=== PATIENT | female | born 1975 | race Two or more races ===

== ENCOUNTER → 2024-05-19 | Outpatient (CLI) | payer MEDICAID, SELFPAY ==
--- NOTE | 2024-05-19 13:45 | XR_ITS ---
Examination: Breast ultrasound complete, bilateral Date and time of exam: May 19, 2024 1406 hours INDICATIONS: Right breast pain beginning one year ago Technique: Real-time grayscale ultrasonographic imaging bilateral breasts, including all 4 quadrants as well as nipple retroareolar and axillary regions. Findings: Sonographic images right breast 10:00 nodule with breast biopsy marker 7 x 8 mm 10:00 nodule lobular margins 5 x 5 mm Sonographic images left breast No cystic or solid mass IMPRESSION: BI-RADS Category 3: Probably benign findings One additional 6 month right breast sonogram follow-up is needed to document stability of solid nodules described above
--- NOTE | 2024-05-19 14:45 | XR_ITS ---
Examination: Diagnostic digital mammography, bilateral Computer aided detection 3-D breast Tomosynthesis, bilateral Date and time of exam: May 19, 2024 1426 hours Compared to mammograms dating to March 26, 2021 Right breast pain since ultrasound biopsy November 10, 2022 Technique: Nonmagnified MLO, CC views of the breasts to been obtained, reconstructed from 3-D Tomosynthesis images. R2 computer aided detection program utilized for evaluation of suspicious masses and/or abnormal calcifications. 3-D Tomosynthesis images obtained. Findings: The breasts are heterogeneously dense, which may obscure small masses Stable ovoid mass upper outer right breast Benign calcifications No interval suspicious masses Breast biopsy marker upper outer right breast Impression: BI-RADS Category 2: Benign findings Recommend yearly follow-up mammography The right breast report and recommendations today.
== END | disposition home or self-care (01) ==
PROVIDERS: PCP Physician Assistant; Referring Provider Physician Assistant; Visit Provider Physician Assistant
DX: R92.323 Mammographic fibroglandular density, bilateral breasts (principal); R92.1 Mammographic calcification found on diagnostic imaging of breast; N63.11 Unspecified lump in the right breast, upper outer quadrant
CPT/HCPCS: 76641; 77062; 77066; G0279